=== PATIENT | male | born 1965 | race American Indian/Alaskan Native ===

== ENCOUNTER 2016-12-05 19:26 | Observation (INO) | payer SELFPAY ==
[~2016-12-05] VITALS: Ht 165.1 cm; Wt 73.0 kg
[2016-12-09] MEDS ORDERED: FOLVITE-DPS1 MG PO (06:42)
[2016-12-09] MEDS ORDERED: DAILY MULTIPLE1 EAC1 PO (06:42)
[2016-12-09] MEDS ORDERED: MAG-OX400 MG PO (06:42)
[2016-12-09] MEDS ORDERED: VITAMIN B-1100 MG PO (06:43)
--- NOTE | 2016-12-15 13:53 | ER ---
ADMIT: 12/06/2016 RM/LOC: 519 [facility] MR#: [id number] [address] [address] YAZMIN MARISCAL [address] [place] [address] Emergency Room Report SEX: M AGE: 51 : 1965 DATE: 12/05/2016 ADDENDUM: See T-sheet for complete H and P. A 51-year-old male who was brought in by EMS after he was found lying outside one of the motels in [facility]. They did not have any history on the patient. The patient is not able to give me any history, and EMS states that when they showed up, they were called for an unresponsive male. They were able to get some response to noxious stimuli, then patient had a pulse and was breathing on his own when they arrived. REVIEW OF SYSTEMS: Unable to obtain. PAST MEDICAL HISTORY: Unknown. MEDICATIONS: Unknown. ALLERGIES: UNKNOWN. SOCIAL HISTORY: Unknown other than he obviously was drinking alcohol. PHYSICAL EXAMINATION: VITAL SIGNS: Initial blood pressure is 105/62, pulse 74, respirations 18, temp 95.9. Sats were 72% on room air. There were 98% with insertion of a nasal trumpet. GENERAL: The patient is obtunded. HEENT: Head is atraumatic. Pupils are 2 mm and equal bilaterally. He has no facial trauma I can appreciate. He does have extremely poor dentition. Trachea is midline. The patient does have a gag reflex. HEART: Tachycardic. LUNGS: Clear to auscultation. ABDOMEN: Soft. EXTREMITIES: Examination of extremities reveals no signs of any trauma. He has good pulses in all 4 extremities. SKIN: Warm and dry. He is not diaphoretic. LABORATORY DATA: CT head shows nothing acute. Laboratory shows a hemoglobin of 13.7. Otherwise, CBC was normal. Potassium is 3.3. Calcium is 7.2. AST is 69, ALT is 94, INR is 1.09. Initial alcohol was 446. Repeat alcohol approximately 9 hours later was 330. ABG with pH 7.24, pCO2 of 48, PO2 of 64. ADMIT: 12/06/2016 RM/LOC: 519 [facility] MR#: [id number] [address] [address] YAZMIN MARISCAL [address] [place] [address] Emergency Room Report SEX: M AGE: 51 : 1965 EMERGENCY DEPARTMENT COURSE: The patient arrives. He was obviously intoxicated. Due to the fact I did not know situation that caused him to be down outside the hotel, we did do a bit of a workup including blood work and a head CT. Those were unremarkable, and the patient's vital signs were unremarkable other than the fact that without having a nasal trumpet and his sats were low. While in the ER, he did receive a total of 3 L of normal saline. After having been here for numerous hours, he was only showing slight improvement. I made a decision that we could not have him stay in the emergency department longer and we decided to admit him. I spoke to Dr. Romeo and he was admitted to his service for acute alcohol intoxication with alcohol withdrawal precautions. Paresh De Leon MD/ kvng JOB #: [id number] CC: Laurent Romeo MD, Attending Physician Laurent Romeo MD, Family Physician
--- NOTE | 2016-12-25 10:28 | HP ---
ADMIT: 12/06/2016 RM/LOC: 519 [facility] MR#: [id number] [address] [address] YAZMIN MARISCAL [address] [place] [address] History and Physical SEX: M AGE: 51 : 1965 DATE OF SERVICE: CHIEF COMPLAINT: Alcohol intoxication. HISTORY OF PRESENT ILLNESS: The patient presented to the ER last evening and had an alcohol level of 446 mg/dL. They started him on some fluids and thiamine and tried to lower his alcohol level but the patient remained unconscious throughout the admission, was not being able to be aroused. Moreover, his blood alcohol level after 9 hours only decreased to 332, so it was determined the patient should be admitted for alcohol withdrawal. When I saw the patient, he was laying comfortably in bed but was nonresponsive to verbal stimuli. He does respond to sternal rub but falls back to sleep within a few seconds. He will not answer my questions at this time. There was no documentation in our system but states the patient had a history of seizures with withdrawal and most of my knowledge about the patient did come from previous H and Ps and ER documentation. The patient was found lying [facility] of [facility]. He was unresponsive at that time. MEDICATIONS: None. PAST MEDICAL HISTORY: In some reports, it is repeated that he has diabetes but does not take any medications because he cannot afford them. However, his blood sugar today was 82 in the ER. ALLERGIES: NONE. PAST SURGICAL HISTORY: Biceps tendon repair. SOCIAL HISTORY: He is . He is a chronic alcohol user. Previous documentation through the chemical dependency eval states that he has had multiple DUIs. He has also been in usp. He denies any other illicit drug use. Also denies smoking. The patient is not employed but does have a high school education. PHYSICAL EXAMINATION: VITAL SIGNS: 97.4, 80 pulse rate, blood pressure is 110/68 with MAP of 81, respiratory rate of 18, and he is saturating 97% on 3 L of oxygen. GENERAL: He is in no acute distress. He is nonresponsive to verbal stimuli. He is responsive to multiple times of sternal rub but only awakens momentarily. HEENT: Normocephalic and atraumatic. Moist mucous membranes. HEART: Regular rate and rhythm. LUNGS: Clear to auscultation bilaterally. ABDOMEN: Soft and flat. Positive bowel sounds. EXTREMITIES: No edema. He smells of alcohol. REVIEW OF SYSTEMS: Unable to be obtained due to the patient's status. LABORATORY DATA: Labs done today shows slightly low hemoglobin of 13.7, ADMIT: 12/06/2016 RM/LOC: 519 [facility] MR#: [id number] [address] [address] YAZMIN MARISCAL [address] [place] [address] History and Physical SEX: M AGE: 51 : 1965 otherwise, CBC was normal. Head CT was normal. He has slightly low potassium of 3.3, glucose was 82. Otherwise, creatinine and other electrolytes were normal. He does not have an anion gap. AST was slightly elevated at 69. ALT was elevated at 94. Blood alcohol #1 when he first came to the ER was 446, 9 hours later was 332. ASSESSMENT AND PLAN: This is a 51-year-old male with alcohol intoxication. We will admit for alcohol withdrawal. He is a chronic alcohol user. 1. Alcohol withdrawal. 2. Chronic alcohol abuse. 3. Possible diabetes. We will admit the patient with IV fluids as well as replace electrolytes and give him multivitamin, thiamine, folic acid, and Mag sulfate in the form of IV form. We will treat him with WA protocol with lorazepam. We will have Haldol as needed, beta-blockers and clonidine as needed as well for symptoms. Viktoria Hernandez MD Resident / Laurent Romeo MD / kvng JOB #: [id number] CC: Laurent Romeo, Attending Physician Laurent Romeo, Family Physician
[2017-01-11] MEDS ORDERED: PEPCID DPS20 MG PO (15:45)
[2017-01-11] MEDS ORDERED: COLACE-DPS100 MG PO (15:46)
[2017-01-11] MEDS ORDERED: ZITHROMAX250 MG PO (15:46)
--- NOTE | 2017-01-13 10:46 | DS ---
ADMIT: 12/06/2016 RM/LOC: 519 [facility] MR#: [id number] 26[address] [facility] [address] [place] [phone] YAZMIN MARISCAL [address] [place] [address] General Discharge Summary SEX: M AGE: 51 : 1965 ADMISSION DATE: 12/06/2016 DISCHARGE DATE: 12/08/2016 CONSULTS: None. PROCEDURES: None. STATUS: Stable and improved. FINAL DIAGNOSES: Include: 1. Alcohol intoxication with initial blood alcohol level of 446. 2. Meth abuse. 3. Diabetes. 4. Hypokalemia. 5. 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 6. Hypertension. HISTORY OF PRESENT ILLNESS: The patient was found to be unresponsive outside of a motel and was brought into the ER by EMS where his blood sugars were elevated as well as be positive for methamphetamines. HOSPITAL COURSE: The patient was admitted for alcohol intoxication and withdrawal. The patient was started on CIWA protocol, initially did not show any withdrawal symptoms and was doing fairly okay. He slept most of his day, however, on 12/07/2016, he started having some tremors and shaking, but that only lasted that evening. The next day, he was feeling much better. The patient has been visited by the [facility] but he did not want to pursue drug and alcohol treatment at this time. The patient was discharged to home in stable condition. Follow up with [facility] or [address] [place] [address] Clinic in 1 week. DISCHARGE MEDICATIONS: 1. Folvite. 2. Mag-Ox. 3. Multivitamins. 4. B1 vitamins. 5. Pepcid. Status was full. Viktoria Hernandez MD Resident / Laurent Romeo MD / kvng JOB #: [id number] CC: Laurent Romeo MD, Attending Physician Laurent Romeo MD, Family Physician
== END 2016-12-08 12:37 | disposition home or self-care (01) ==
LOC: ER 19:26 → 5MS 12-06 02:00 → ER 12-06 02:00 → 5MS 12-06 06:05
PROVIDERS: ADMIT Family Medicine
DX: F10.229 Alcohol dependence with intoxication, unspecified (principal); F10.239 Alcohol dependence with withdrawal, unspecified; F15.10 Other stimulant abuse, uncomplicated; E11.9 Type 2 diabetes mellitus without complications; Z98.890 Other specified postprocedural states; M25.511 Pain in right shoulder

== ENCOUNTER 2017-01-07 16:42 | Inpatient (IN) | payer SELFPAY ==
[~2017-01-07] VITALS: Ht 165.1 cm; Wt 75.0 kg
--- NOTE | ~2017-01-07 | ECH ---
Transthoracic Echocardiography Report (TTE) Demographics Patient Name YAZMIN MARISCAL Date of Study 01/08/2017 Patient Number [id number] Visit Number [id number] Date of 1965 Room Number 411 Accession Number [id number] Gender Male Age 51 year(s) Referring José Manuel Desai MD Pastoral Worker Kathy Cleveland Physician RDCS Physician Interpreting Myke Latif MD Business Project Analyst Physician Supervising Ordering Physician José Manuel Desai MD, MD/MLP Nurse Stress Clinical Admissions Manager Conclusions Summary Technically adequate exam. The estimated left ventricular ejection fraction is 60-65%. Diastolic assessment reveals Grade I diastolic dysfunction. No significant valvular abnormalities. Procedure Type of Study TTE procedure:Echo Complete SF. Procedure Date Date: 01/08/2017 Start: 08:30 AM Technical Quality: Adequate visualization Indications:Elevated Troponin. Additional Indications:ETOH abuse Appropriate Use Criteria: 9 Height: 65 inches Weight: 167 pounds BSA: 1.83 m Rhythm: NSR HR: 96 bpm BP: 137/66 mmHg M-Mode/2D Measurements LV Diastolic Dimension: 5.34 cm LV Systolic Dimension: 3.77 cm LV Septum Diastolic: 0.67 cm LV PW Diastolic: 0.78 cm AO Root Dimension: 3.23 cm Cardiac Output: 7.5 l/min LA Dimension: 3.3 cm Cardiac Index: 4.1 l/min*m RV Diastolic Dimension: 3.23 cm LA volume index: 25 ml/m LVOT: 2.06 cm LVOT VTI: 23.46 cm RV Base: 3.4 cm LV Stroke volume: 78.15 ml RV Mid: 2.1 cm LV Stroke volume index: 42.7 ml/m TAPSE: 1.9 cm TDI-S': 18 cm/s Doppler Measurements AV Peak Velocity: 1.8 m/s MV Peak E-Wave: 1.1 m/s AV Peak Gradient: 12.96 mmHg MV Peak A-Wave: 1.31 m/s AV Mean Gradient: 6.02 mmHg MV E/A Ratio: 0.84 LVOT Peak Velocity: 1.4 m/s MV P1/2t: 49.3 msec AV Area (Continuity):2.86 cm MV Deceleration Time: 182.3 msec MV Area (PHT): 4.47 cm PV Peak Velocity: 1.07 m/s E' Septal Velocity: 0.08 m/s PV Peak Gradient: 4.57 mmHg E' Lateral Velocity: 0.18 m/s A' Septal Velocity: 0.13 m/s A' Lateral Velocity: 0.12 m/s RA Area: 12.5 cm Findings Left Ventricle Normal left ventricle size and function. Diastolic assessment reveals Grade I diastolic dysfunction. Right Ventricle Normal right ventricle structure and function. Left Atrium Normal left atrial size. Right Atrium Normal right atrial size. Mitral Valve Normal mitral valve structure and function. Trivial mitral regurgitation by color Doppler. Aortic Valve Normal aortic valve structure and function. Tricuspid Valve Normal tricuspid valve structure and function. Trivial tricuspid regurgitation by color Doppler. Insufficient jet to calculate pulmonary pressures. Pulmonic Valve Normal pulmonic valve structure and function. Pericardial Effusion No evidence of pericardial effusion. Miscellaneous Visualized portions of the aortic root and ascending aorta appear normal in size. Pleural Effusion No evidence of pleural effusion. Contractility Score LV regional wall motion:(0-Non visualized 1-Normal 2-Hypokinesis 3-Akinesis 4-Dyskinesis 5-Aneurysm) Signature
[~2017-01-07 16:42] MED LIST: DAILY MULTIPLE1 EAC1 PO; FOLVITE-DPS1 MG PO; MAG-OX400 MG PO; VITAMIN B-1100 MG PO
[2017-01-11] MEDS ORDERED: PEPCID DPS20 MG PO (15:45)
[2017-01-11] MEDS ORDERED: COLACE-DPS100 MG PO (15:46)
[2017-01-11] MEDS ORDERED: ZITHROMAX250 MG PO (15:46)
--- NOTE | 2017-01-13 15:34 | ER ---
ADMIT: 01/07/2017 RM/LOC: 411 [facility] MR#: [id number] [address] [address] YAZMIN MARISCAL [address] [place] [address] Emergency Room Report SEX: M AGE: 51 : 1965 DATE: 01/07/2017 ADDENDUM: This is a 51-year-old, white male who was brought in with a fever. His white count is 18,000. His lactate is 2.6. He has right lobar pneumonia on the chest x-ray. At this time, he has had his fluid. He has had his sepsis workup. He has had his antibiotic. He is going to be admitted per Dr. Georges, city call. CONDITION ON DISCHARGE: Serious, but stable. Zenon Hernandez MD/ modl JOB #: [id number] CC: Lloyd Georges MD, Attending Physician UNKNOWN, Family Physician
--- NOTE | 2017-02-21 15:58 | DS ---
ADMIT: 01/07/2017 RM/LOC: 411 [facility] MR#: [id number] [address] [address] YAZMIN MARISCAL [address] [place] [address] General Discharge Summary SEX: M AGE: 51 : 1965 ADMISSION DATE: 01/07/2017 DISCHARGE DATE: 01/10/2017 ADMISSION DIAGNOSIS: Acute respiratory failure secondary to right upper lobe pneumonia. DISCHARGE DIAGNOSIS: Acute respiratory failure secondary to right upper lobe pneumonia. SECONDARY DIAGNOSES: 1. Alcohol use disorder. 2. Lactic acidosis. 3. Elevated troponin. 4. Hyperglycemia. 5. Moderate protein-calorie malnutrition. HISTORY OF PRESENT ILLNESS: The patient was brought to the emergency room when he was found down at home by his daughter whom he lives with. This was thought to be secondary to alcohol intoxication; however, he was found to have a right upper lobe pneumonia and hypoxemia. He was originally with altered mental status, which resolved after receiving 30 mL/kg bolus of fluids. He reported a few day history of cough with increased sputum production. Denied any known episode of aspiration. HOSPITAL COURSE: The patient was admitted, and his hypoxemia resolved with few liter supplementation of oxygen per nasal cannula. He is tested with a respiratory viral panel, flu, strep pneumo, urine antigen, and Legionella urine antigen all of which were negative. Blood and urine cultures were also negative at 5 days. He was treated with broad-spectrum antibiotics, and [facility] protocol was ordered for possible alcohol withdrawal. The patient was noted to have an elevated troponin on presentation, which peaked at 0.128 and was thought to be secondary to sepsis. He responded quickly to interventions, and on hospital day 3 was thought to be stable for discharge. Social Work was consulted due to the alcohol use disorder and patient elected to initiate outpatient AA meetings as opposed to treatment and something more structured such as ADTC. He also had an echocardiogram during the hospitalization with left ventricular ejection fraction of 60% to 65% and grade 1 diastolic dysfunction. ADMIT: 01/07/2017 RM/LOC: 411 [facility] MR#: [id number] [address] [address] YAZMIN MARISCAL [address] [facility] [place] [address] General Discharge Summary SEX: M AGE: 51 : 1965 MEDICATIONS ON DISCHARGE: 1. Folvite 1 mg p.o. daily. 2. Magnesium oxide 400 mg p.o. daily. 3. Pepcid 20 mg p.o. daily. 4. Multivitamin 1 tab p.o. daily. 5. Vitamin B1, 100 mg p.o. daily. 6. Colace 100 mg p.o. b.i.d. 7. Zithromax 250 mg p.o. daily for 4 days. FOLLOWUP: The patient is to follow up with Dr. Georges in 1 week and have a repeat chest x-ray at that time. Melissa Cochran MD Resident / Lloyd Georges MD / kvng JOB #: [id number] CC: Lloyd Georges MD, Attending Physician Lloyd Georges MD, Family Physician
--- NOTE | 2017-02-21 15:58 | HP ---
ADMIT: 01/07/2017 RM/LOC: 411 [facility] MR#: [id number] [address] [address] YAZMIN MARISCAL [address] [place] [address] History and Physical SEX: M AGE: 51 : 1965 DATE OF SERVICE: CHIEF COMPLAINT: "Everything hurts." HISTORY OF PRESENT ILLNESS: The patient is a 51-year-old male with past medical history of alcohol abuse, who regularly drinks 750 mL of Meliton Mart daily, who was found obtunded on his kitchen floor. He is living with his daughter, who found him down and called the ambulance. He has had a similar presentation a month ago, which was thought to be secondary to alcohol intoxication; however, this time he is found to have right upper lobe pneumonia and hypoxemia. After receiving his 30 mL/kg of fluids, the patient is now back to his baseline mentation. He reports that he has had a cough with sputum production for "a few days," but denies any shortness of breath or increased work of breathing. He denies any hemoptysis. He denies any known fevers at home prior to presentation. He denies any recent episodes of vomiting or risks for aspiration. He does also have a possible tooth abscess and multiple loose teeth. He denies any nasal congestion, pharyngitis, nausea, vomiting, diarrhea, or possibly infected skin sores. PAST MEDICAL HISTORY: Daily alcohol use and possible type 2 diabetes mellitus. The patient does not have a primary care physician. PAST SURGICAL HISTORY: Appendectomy and biceps tendon repair. MEDICATIONS: None, but drug screen was positive for benzodiazepine. ALLERGIES: NO KNOWN MEDICAL ALLERGIES. SOCIAL HISTORY: The patient is . He is currently living with his granddaughter. 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 He has history of multiple DUIs and usp time secondary to alcohol use. He denies any illicit drug use or smoking tobacco. REVIEW OF SYSTEMS: A 10-point review of systems was completed and negative except as noted in the HPI. PHYSICAL EXAMINATION: VITAL SIGNS: 156/94, 79, 37, 96% on 4 L per nasal cannula, 101 Fahrenheit. GENERAL: Awake, alert, oriented, in no acute distress. Appears comfortable on 4 L per nasal cannula. HEENT: Normocephalic, atraumatic. Pupils are equal, round, and reactive to light and accommodation. Extraocular muscles are intact. Poor dentition with multiple missing teeth. HEART: Tachycardic with regular rhythm. No appreciable murmurs. LUNGS: Clear to auscultation except for decreased breath sounds in the right upper lobe, normal work of breathing on 4 L per nasal cannula. ABDOMEN: Soft, nontender to palpation without rebound or guarding. SKIN: With multiple abrasions, though none with surrounding erythema or fluctuance. NEUROLOGIC: Awake and oriented, hands are steady. ADMIT: 01/07/2017 RM/LOC: 411 [facility] MR#: [id number] [address] [place] [address] YAZMIN MARISCAL [address] [place] [address] History and Physical SEX: M AGE: 51 : 1965 PSYCH: Normal mood and affect. OBJECTIVE DATA: WBC 18.9, hemoglobin 16.1, platelets 208, creatinine 1.0, blood sugar 217, lactic acid 2.6, troponin 0.128, procalcitonin 1.62. EKG sinus tachycardia at a rate of 108. Chest x-ray with right upper lobe consolidation. ASSESSMENT: 1. Acute respiratory failure with hypoxemia. 2. Sepsis secondary to right upper lobe pneumonia. 3. Elevated troponin. 4. Lactic acidosis. 5. Alcohol dependence. 6. Hyperglycemia. PLAN: We will continue IV antibiotics and supplemental oxygen as needed and deescalate antibiotics as possible. We will monitor for signs and symptoms of alcohol withdrawal. The patient was admitted a month ago and reportedly had no significant need for Ativan during withdrawal. We will check Strep pneumo and Legionella urine antigen as well as influenza to help narrow treatment. The patient will have a general diet and activity as tolerated. We will trend troponin q.6 hours, though with no EKG changes, suspect it is secondary to sepsis. The patient is a full code. Melissa Cochran MD Resident / Lloyd Georges MD / kvng JOB #: [id number] CC: Lloyd Georges, Attending Physician UNKNOWN, Family Physician
== END 2017-01-10 13:48 | disposition home or self-care (01) | DRG 871 ==
LOC: ER 16:42 → 4PCU 18:25
PROVIDERS: ADMIT Family Medicine
PROC: HZ2ZZZZ Detoxification Services for Substance Abuse Treatment (ICD-10-PCS; principal; 2017-01-07)
DX: A41.9 Sepsis, unspecified organism (principal); J18.9 Pneumonia, unspecified organism; J96.01 Acute respiratory failure with hypoxia; E44.0 Moderate protein-calorie malnutrition; R73.02 Impaired glucose tolerance (oral); R79.89 Other specified abnormal findings of blood chemistry; F10.20 Alcohol dependence, uncomplicated; R73.9 Hyperglycemia, unspecified; Z66 Do not resuscitate

== ENCOUNTER 2017-02-11 13:34 | Emergency (ER) | payer SELFPAY ==
[~2017-02-11 13:34] MED LIST changes: +COLACE-DPS100 MG PO; +PEPCID DPS20 MG PO; +ZITHROMAX250 MG PO
--- NOTE | 2017-02-21 01:14 | ER ---
ADMIT: 02/11/2017 RM/LOC: ER [facility] MR#: [id number] [address] [address] YAZMIN MARISCAL [address] [place] [address] Emergency Room Report SEX: M AGE: 51 : 1965 DATE: 02/11/2017 ADDENDUM: A 51-year-old male, comes in with some right-sided chest pain and some right shoulder pain. He fell off a dock 3 days ago onto a hard surface. He complains of pain in his chest since then. He states it is worse when he moves certain ways or takes a real deep breaths. He otherwise is not short of breath. PHYSICAL EXAMINATION: See T-sheet. Chest x-ray and right rib films reveal no acute injury. No pneumothorax. The patient is given a shot of Toradol here and discharged home to use ibuprofen 400 mg t.i.d. for the next 3-4 days and to take with food. He is to follow up Dr. Aranda if not getting better. Return to the ER for any concerning symptoms. Paresh De Leon MD/ kvng JOB #: [id number] CC: Paresh De Leon MD, Attending Physician Paulo Aranda MD, Family Physician
== END 2017-02-11 16:00 | disposition home or self-care (01) ==
LOC: ER 13:34
DX: S20.212A Contusion of left front wall of thorax, initial encounter (principal); W19.XXXA Unspecified fall, initial encounter